=== PATIENT | male | born 1985 | race Caucasian/White ===

== ENCOUNTER 2021-03-02 17:13 | Emergency (ER) | payer MEDICAID, OTHER ==
[~2021-03-02] VITALS: Ht 185.4 cm; Wt 95.3 kg
[2021-03-02 18:27] LABS: Salicylate < 1.7 mg/dL (2.8-20.0)
[2021-03-02 18:48] LABS: Acetaminophen < 2.0 ug/mL (10-30)
[2021-03-02 21:37] LABS: Barbiturate Scree,Urine NEGATIVE (NEGATIVE); Benzodiazephine Screen, Urine NEGATIVE (NEGATIVE); Cocaine Screen, Urine NEGATIVE (NEGATIVE)
[2021-03-02 21:46] LABS: Amphetamine Screen, Urine POSITIVE (NEGATIVE); Cannabinoid Screen, Urine POSITIVE (NEGATIVE); Opiate Scree,Urine NEGATIVE (NEGATIVE); Phencyclidine Screen, Urine NEGATIVE (NEGATIVE)
[2021-03-02] MEDS ORDERED: DOCUSATE SOD 100 MG CAP PO ONE (23:15)
[2021-03-02] MEDS ORDERED: ACETAMINOPHEN 325 MG TAB PO ONE (23:15)
[2021-03-03 02:35] VITALS: BP 134/79
== END 2021-03-03 02:37 | disposition home or self-care (01) ==
LOC: ER 17:13
DX: R45.851 Suicidal ideations (principal); R07.89 Other chest pain; F31.9 Bipolar disorder, unspecified; F20.9 Schizophrenia, unspecified; F41.9 Anxiety disorder, unspecified; F17.210 Nicotine dependence, cigarettes, uncomplicated
CPT/HCPCS: 36415; 80307; 80320; 80329

== ENCOUNTER 2021-04-13 03:34 | Emergency (ER) | payer MEDICAID ==
[~2021-04-13] VITALS: Ht 185.4 cm; Wt 93.9 kg
[2021-04-13 07:15] LABS: Basophils # (auto) 0.1 10 ^3/uL (0-0.2); Basophils % (auto) 0.8 % (0.0-2.0); Eosinophils # (auto) 0.4 10 ^3/uL (0-0.8); Eosinophils % (auto) 4.4 % (0.0-7.0); Hematocrit 43.2 % (41.0-53.0); Hemoglobin 14.7 g/dL (13.5-17.5); Lymphocytes # (auto) 1.6 10 ^3/uL (0.4-5.4); Lymphocytes % (auto) 16.3 % (10.0-50.0); Mean Corpuscular Hemoglobin 33.2 pg (28.0-32.0); Mean Corpuscular Volume 97.7 fL (80.0-100.0); Monocytes # (auto) 0.5 10 ^3/uL (0-1.3); Monocytes % (auto) 5.1 % (0.0-12.0); Neutrophils # (auto) 7.2 10 ^3/uL (1.6-8.6); Neutrophils % (auto) 73.4 % (37.0-80.0); Nucleated Red Blood Cells % 0.1 %; Red Blood Cells 4.42 10^6/uL (4.5-5.90); Red Cell Distribution Width 13.6 % (11.8-14.3); White Blood Cell 9.9 10^3/uL (4.4-10.8)
[2021-04-13 07:30] LABS: Albumin 3.6 g/dL (3.4-5.0); Anion Gap 5 (5-15); Blood Alcohol < 3.0 mg/dL (0-5); Blood Urea Nitrogen 14 mg/dL (7-18); Calcium 8.5 mg/dL (8.5-10.1); Carbon Dioxide 27 mmol/L (21-32); Chloride 109 mmol/L (98-107); Glucose 88 mg/dL (74-106); Potassium 3.9 mmol/L (3.5-5.1); Sodium 141 mmol/L (136-145)
[2021-04-13 07:33] LABS: Alanine Aminotransferase 24 U/L (16-61); Alkaline Phosphatase 69 U/L (45-117); Aspartate Aminotransferase 18 U/L (15-37); BUN/Creatinine Ratio 16.1; Bilirubin, Total 0.3 mg/dL (0.2-1.0); GFR African American 128 mL/min; GFR Non-African American 106 mL/min; Total Protein 7.1 g/dL (6.4-8.2)
[2021-04-13 11:42] VITALS: BP 101/69
[2021-04-13 12:00] LABS: Urine Bacteria NONE SEEN /hpf (None Seen); Urine Blood Negative /uL (Negative); Urine Mucus FEW (None Seen); Urine WBC 1 /hpf (0 - 3)
[2021-04-13 12:06] LABS: Alcohol, Urine < 3.0 mg/dL (0-10); Amphetamine Screen, Urine NEGATIVE (NEGATIVE); Barbiturate Scree,Urine NEGATIVE (NEGATIVE); Benzodiazephine Screen, Urine NEGATIVE (NEGATIVE); Cannabinoid Screen, Urine POSITIVE (NEGATIVE); Cocaine Screen, Urine NEGATIVE (NEGATIVE); Opiate Scree,Urine NEGATIVE (NEGATIVE); Phencyclidine Screen, Urine NEGATIVE (NEGATIVE)
== END 2021-04-13 12:27 | disposition home or self-care (01) ==
LOC: ER 03:37
DX: R45.851 Suicidal ideations (principal); F17.210 Nicotine dependence, cigarettes, uncomplicated; F32.9 Major depressive disorder, single episode, unspecified; F41.9 Anxiety disorder, unspecified; F12.10 Cannabis abuse, uncomplicated; F14.10 Cocaine abuse, uncomplicated; Z20.822 Contact with and (suspected) exposure to COVID-19
CPT/HCPCS: 36415; 80053; 80307; 80320; 81001; 85025; 85049; 87426

== ENCOUNTER 2021-05-11 01:04 | Emergency (ER) | payer MEDICAID ==
[~2021-05-11] VITALS: Ht 185.4 cm; Wt 95.7 kg
[2021-05-11 02:18] LABS: Basophils # (auto) 0.1 10 ^3/uL (0-0.2); Eosinophils # (auto) 0.4 10 ^3/uL (0-0.8); Lymphocytes # (auto) 1.9 10 ^3/uL (0.4-5.4); Lymphocytes % (auto) 27.4 % (10.0-50.0); Monocytes % (auto) 7.8 % (0.0-12.0)
[2021-05-11 02:20] LABS: Basophils % (auto) 1.1 % (0.0-2.0); Hematocrit 43.5 % (41.0-53.0); Hemoglobin 15.3 g/dL (13.5-17.5); Mean Corpuscular Hemoglobin 34.2 pg (28.0-32.0); Mean Corpuscular Hgb Conc. 35.3 g/dL (32.0-36.0); Mean Corpuscular Volume 96.9 fL (80.0-100.0); Monocytes # (auto) 0.6 10 ^3/uL (0-1.3); Neutrophils # (auto) 4.1 10 ^3/uL (1.6-8.6); Neutrophils % (auto) 57.7 % (37.0-80.0); Red Blood Cells 4.48 10^6/uL (4.5-5.90); Red Cell Distribution Width 13.4 % (11.8-14.3); White Blood Cell 7.1 10^3/uL (4.4-10.8)
[2021-05-11 02:35] LABS: Calcium 8.5 mg/dL (8.5-10.1); Potassium 3.9 mmol/L (3.5-5.1); Salicylate 2.3 mg/dL (2.8-20.0)
[2021-05-11 02:38] LABS: BUN/Creatinine Ratio 9.8
[2021-05-11 02:40] LABS: Bilirubin, Total 0.3 mg/dL (0.2-1.0); Total Protein 7.4 g/dL (6.4-8.2)
[2021-05-11 02:48] LABS: Acetaminophen < 2.0 ug/mL (10-30)
[2021-05-11 07:12] LABS: Urine WBC None Seen /hpf (0 - 3)
[2021-05-11 07:31] LABS: Urine Bacteria FEW /hpf (None Seen); Urine Blood Negative /uL (Negative); Urine Specific Gravity 1.003 (1.001-1.035)
[2021-05-11 07:42] LABS: Alcohol, Urine < 3.0 mg/dL (0-10); Amphetamine Screen, Urine NEGATIVE (NEGATIVE); Barbiturate Scree,Urine NEGATIVE (NEGATIVE); Benzodiazephine Screen, Urine NEGATIVE (NEGATIVE); Cannabinoid Screen, Urine POSITIVE (NEGATIVE); Cocaine Screen, Urine NEGATIVE (NEGATIVE); Opiate Scree,Urine NEGATIVE (NEGATIVE); Phencyclidine Screen, Urine NEGATIVE (NEGATIVE)
[2021-05-12 17:57] VITALS: BP 92/56
== END 2021-05-12 18:19 ==
LOC: ER 01:07
DX: R45.851 Suicidal ideations (principal); F32.9 Major depressive disorder, single episode, unspecified; F20.9 Schizophrenia, unspecified; F17.210 Nicotine dependence, cigarettes, uncomplicated; F12.10 Cannabis abuse, uncomplicated; F41.9 Anxiety disorder, unspecified; Z20.822 Contact with and (suspected) exposure to COVID-19
CPT/HCPCS: 36415; 80053; 80307; 80320; 80329; 81001; 85025; 87426

== ENCOUNTER 2021-06-05 21:42 | Emergency (ER) | payer MEDICAID ==
[~2021-06-05] VITALS: Ht 185.4 cm; Wt 95.7 kg
[2021-06-06 00:25] LABS: Hematocrit 41.9 % (41.0-53.0); Hemoglobin 14.5 g/dL (13.5-17.5); Mean Corpuscular Hemoglobin 33.8 pg (28.0-32.0); Mean Corpuscular Hgb Conc. 34.6 g/dL (32.0-36.0); Mean Corpuscular Volume 97.4 fL (80.0-100.0); Red Cell Distribution Width 13.3 % (11.8-14.3); White Blood Cell 8.1 10^3/uL (4.4-10.8)
[2021-06-06 00:31] LABS: Basophils % (manual) 0 (0.0-2.0); Blast Cells 0; Metamyelocytes % 0; Myelocytes % 0; Promyelocytes % 0
[2021-06-06 00:38] LABS: Anion Gap 7 (5-15); BUN/Creatinine Ratio 6.8; Blood Alcohol < 3.0 mg/dL (0-5); Blood Urea Nitrogen 6 mg/dL (7-18); Calcium 8.3 mg/dL (8.5-10.1); Carbon Dioxide 26 mmol/L (21-32); Chloride 108 mmol/L (98-107); GFR African American 126 mL/min; GFR Non-African American 104 mL/min; Glucose 90 mg/dL (74-106); Potassium 3.8 mmol/L (3.5-5.1); Sodium 141 mmol/L (136-145)
[2021-06-06 00:39] LABS: Salicylate < 1.7 mg/dL (2.8-20.0)
[2021-06-06 00:47] LABS: Acetaminophen < 2.0 ug/mL (10-30)
[2021-06-06 01:08] LABS: Band Neutrophils % (manual) 4; Eosinophils % (manual) 5 (0-7); Lymphocytes % (manual) 32 (10.0-50.0); Monocytes % (manual) 7 (0-12); Reactive Lymphocytes 1
[2021-06-06 09:11] LABS: Alcohol, Urine < 3.0 mg/dL (0-10); Amphetamine Screen, Urine NEGATIVE (NEGATIVE); Barbiturate Scree,Urine NEGATIVE (NEGATIVE); Benzodiazephine Screen, Urine NEGATIVE (NEGATIVE); Cannabinoid Screen, Urine POSITIVE (NEGATIVE); Cocaine Screen, Urine NEGATIVE (NEGATIVE); Opiate Scree,Urine NEGATIVE (NEGATIVE); Phencyclidine Screen, Urine NEGATIVE (NEGATIVE)
[2021-06-06] MEDS ORDERED: hydrOXYzine 25 MG TAB or CAP PO PRN (11:15)
[2021-06-06] MEDS ORDERED: OLAN1TAB19 PO (14:47)
[2021-06-06] MEDS ORDERED: FLUO-259 PO (14:48)
[2021-06-06] MEDS ORDERED: HYDR50TA32 PO (14:51)
[2021-06-06] MEDS ORDERED: ALPR0.25 PO (14:58)
[2021-06-06] MEDS: OLANZapine 5 MG TAB PO SCH (23:57)
[2021-06-07] MEDS ORDERED: FLUoxetine HCL 20 MG CAP PO SCH (10:00)
[2021-06-07] MEDS: OLANZapine 5 MG TAB PO SCH (22:00)
[2021-06-08 12:37] VITALS: BP 126/83
== END 2021-06-08 13:13 | disposition home or self-care (01) ==
LOC: ER 21:42
DX: R45.851 Suicidal ideations (principal); F32.9 Major depressive disorder, single episode, unspecified; F41.9 Anxiety disorder, unspecified; F17.210 Nicotine dependence, cigarettes, uncomplicated
CPT/HCPCS: 36415; 80048; 80307; 80320; 80329; 85007; 85027; 99285; C9803; U0003

== ENCOUNTER 2023-03-24 16:03 | Emergency (ER) | payer MEDICAID ==
[~2023-03-24] VITALS: Ht 185.4 cm; Wt 93.8 kg
[~2023-03-24 16:03] MED LIST: ALPR0.25 PO; FLUO-259 PO; HYDR50TA32 PO; OLAN1TAB19 PO
[2023-03-24 16:10] VITALS: BP 139/82
[2023-03-24 16:41] LABS: Hematocrit 44.2 % (41.0-53.0); Hemoglobin 15.3 g/dL (13.5-17.5); Mean Corpuscular Hemoglobin 33.1 pg (28.0-32.0); Mean Corpuscular Hgb Conc. 34.6 g/dL (32.0-36.0); Mean Corpuscular Volume 95.9 fL (80.0-100.0); Red Blood Cells 4.61 10^6/uL (4.5-5.90); Red Cell Distribution Width 13.7 % (11.8-14.3); White Blood Cell 8.9 10^3/uL (4.4-10.8)
[2023-03-24 16:48] LABS: Urine Bacteria NONE SEEN /hpf (None Seen); Urine Blood Negative /uL (Negative); Urine Specific Gravity 1.011 (1.001-1.035); Urine WBC <1 /hpf (0 - 3)
[2023-03-24 16:50] LABS: Basophils % (manual) 0 (0.0-2.0); Blast Cells 0; Metamyelocytes % 0; Myelocytes % 0; Promyelocytes % 0; Reactive Lymphocytes 0
[2023-03-24 16:57] LABS: Albumin 3.8 g/dL (3.4-5.0); Calcium 8.4 mg/dL (8.5-10.1); Potassium 3.9 mmol/L (3.5-5.1)
[2023-03-24 17:00] LABS: BUN/Creatinine Ratio 13.9 (10.0-20.0); Bilirubin, Total 0.4 mg/dL (0.2-1.0); Total Protein 7.3 g/dL (6.4-8.2)
[2023-03-24 17:18] LABS: Band Neutrophils % (manual) 3; Eosinophils % (manual) 1 (0-7); Lymphocytes % (manual) 25 (10.0-50.0); Monocytes % (manual) 12 (0-12)
[2023-03-25] MEDS ORDERED: POLY335015 PO (08:50)
== END 2023-03-24 23:13 | disposition left against medical advice (07) ==
LOC: ER 16:03
DX: K92.1 Melena (principal); K64.9 Unspecified hemorrhoids; F17.210 Nicotine dependence, cigarettes, uncomplicated; F12.10 Cannabis abuse, uncomplicated; F41.9 Anxiety disorder, unspecified; F32.9 Major depressive disorder, single episode, unspecified; F20.9 Schizophrenia, unspecified
CPT/HCPCS: 36415; 74176; 80053; 81001; 83690; 85007; 85027

== ENCOUNTER 2023-03-25 07:50 | Emergency (ER) | payer MEDICAID ==
[~2023-03-25] VITALS: Ht 185.4 cm; Wt 94.0 kg
[2023-03-25 08:39] VITALS: BP 116/77
[2023-03-25] MEDS ORDERED: LACTULOSE 20Gm/30ML SOLN PO ONE (08:45)
[2023-03-25] MEDS ORDERED: POLY335015 PO (08:50)
[2023-03-25] MEDS ORDERED: POLYETHYLENE GLYCOL 17 GM PWDR PO ONE (09:15)
== END 2023-03-25 11:57 | disposition home or self-care (01) ==
LOC: ER 07:50
DX: K59.00 Constipation, unspecified (principal); F17.210 Nicotine dependence, cigarettes, uncomplicated; F12.10 Cannabis abuse, uncomplicated
CPT/HCPCS: 74018

== ENCOUNTER → 2023-04-16 | Emergency (ER) | payer MEDICAID ==
[~2023-04-16] VITALS: Ht 185.4 cm; Wt 92.3 kg
[~2023-04-16] MED LIST changes: +DICY10CA PO; +POLY335015 PO
[2023-04-16 15:16] VITALS: BP 124/81
== END | disposition home or self-care (01) ==
LOC: ER 12:15
DX: R10.9 Unspecified abdominal pain (principal); F17.210 Nicotine dependence, cigarettes, uncomplicated; F12.90 Cannabis use, unspecified, uncomplicated; F41.9 Anxiety disorder, unspecified; F32.9 Major depressive disorder, single episode, unspecified; F20.9 Schizophrenia, unspecified; Z79.899 Other long term (current) drug therapy

== ENCOUNTER 2023-05-04 16:31 | Emergency (ER) | payer MEDICAID ==
[~2023-05-04] VITALS: Ht 388.6 cm; Wt 81.8 kg
[2023-05-04 17:18] VITALS: BP 136/68
[2023-05-04 17:44] LABS: Basophils # (auto) 0 10 ^3/uL (0-0.2); Basophils % (auto) 0.6 % (0.0-2.0); Eosinophils # (auto) 0.1 10 ^3/uL (0-0.8); Eosinophils % (auto) 1.1 % (0.0-7.0); Hematocrit 44.9 % (41.0-53.0); Lymphocytes # (auto) 1.7 10 ^3/uL (0.4-5.4); Lymphocytes % (auto) 25.7 % (10.0-50.0); Mean Corpuscular Hgb Conc. 33.4 g/dL (32.0-36.0); Mean Corpuscular Volume 95.8 fL (80.0-100.0); Monocytes # (auto) 0.6 10 ^3/uL (0-1.3); Monocytes % (auto) 8.2 % (0.0-12.0); Neutrophils # (auto) 4.3 10 ^3/uL (1.6-8.6); Neutrophils % (auto) 64.4 % (37.0-80.0); Red Blood Cells 4.68 10^6/uL (4.5-5.90); Red Cell Distribution Width 13.7 % (11.8-14.3); White Blood Cell 6.7 10^3/uL (4.4-10.8)
[2023-05-04 18:03] LABS: Albumin 3.6 g/dL (3.4-5.0); Calcium 8.5 mg/dL (8.5-10.1); Potassium 3.3 mmol/L (3.5-5.1)
[2023-05-04 18:07] LABS: BUN/Creatinine Ratio 5.3 (10.0-20.0); Bilirubin, Total 0.6 mg/dL (0.2-1.0); Magnesium 2.6 mg/dL (1.6-2.6)
[2023-05-04] MEDS ORDERED: SENN-62 PO (21:50)
[2023-05-04] MEDS ORDERED: CIPR-173 PO (21:50)
[2023-05-04] MEDS ORDERED: MAGN400T40 PO (21:50)
[2023-05-04] MEDS ORDERED: POTASSIUM EFFERVESENT TAB 25 MEQ PO ONE (22:00)
== END 2023-05-04 22:04 | disposition left against medical advice (07) ==
LOC: ER 16:31 → EDBD 16:31 → ER 22:04
DX: R10.12 Left upper quadrant pain (principal); K57.30 Diverticulosis of large intestine without perforation or abscess without bleeding; K44.9 Diaphragmatic hernia without obstruction or gangrene; K59.00 Constipation, unspecified; F20.9 Schizophrenia, unspecified; F17.210 Nicotine dependence, cigarettes, uncomplicated; Z79.899 Other long term (current) drug therapy
CPT/HCPCS: 36415; 71046; 74176; 80053; 83690; 83735; 85025

== ENCOUNTER 2024-11-20 00:36 | Emergency (ER) | payer MEDICAID ==
[~2024-11-20] VITALS: Ht 177.8 cm; Wt 82.1 kg
[~2024-11-20 00:36] MED LIST changes: +CIPR-173 PO; +MAGN400T40 PO; +SENN-62 PO
--- NOTE | 2024-11-20 01:04 | ED.PDOC ---
Psychiatric HPI Comments 39-year-old male who came to ER for suicide ideations. Patient does have history of anxiety, depression, schizophrenia and suicide attempts. States she has been feeling suicidal recently, has plans of cutting his wrists. Denies being homicidal. Denies any auditory or visual hallucinations. Chief Complaint: Suicidal Time Seen by MD: 01:03 Primary Care Provider: Chris Monroe Notes: Nurses Notes Information Source: Patient Mode of Arrival: Ambulatory Severity: Unable to Care for Self, Unable to Control Self Severity of Pain: Moderate Severity of Mental Status: Moderate Severity of Symptoms: Moderate Timing: Hours Duration: Intermittent Presents with: Depression, Anxiety, Unclear Thinking, Suicidal Ideation Attempt: Laceration Circumstance: Medical Clearance Current substance abuse: None Stressors: Relationships History of: Depression, Anxiety, Schizophrenia, Suicidal Attempt Associated signs and symptoms: Depression, Anxiety, Confusion Past Medical History PAST MEDICAL HISTORY: Anxiety, Depression, Schizophrenia Past Medical History (Other): Suicidal ideation Surgical History: Denies all surgeries Family History Family History: Reviewed,noncontributory to illness Social History Smoker: Cigarettes, Less Than 1 Pack/Day Alcohol: Occasionally Drugs: Marijuana Lives In: Home Constitutional: denies: chills, diaphoresis, fatigue, fever, malaise, sweats, weakness, others EENTM: denies: blurred vision, double vision, ear bleeding, ear discharge, ear drainage, ear pain, ear ringing, eye pain, eye redness, hearing loss, mouth pain, mouth swelling, nasal discharge, nose bleeding, nose congestion, nose pain, photophobia, tearing, throat pain, throat swelling, voice changes, others Respiratory: denies: cough, hemoptysis, orthopnea, SOB at rest, shortness of breath, SOB with excertion, stridor, wheezing, others Cardiovascular: denies: chest pain, dizzy spells, diaphoresis, Dyspnea on exertion, edema, irregular heart beat, left arm pain, lightheadedness, palpitations, PND, syncope, others Gastrointestinal: denies: abdomen distended, abdominal pain, blood streaked bowels, constipated, diarrhea, dysphagia, difficulty swallowing, hematemesis, melena, nausea, poor appetite, poor fluid intake, rectal bleeding, rectal pain, vomiting, others Genitourinary: denies: burning, dysuria, flank pain, frequency, hematuria, incontinence, penile discharge, penile sore, pain, testicle pain, testicle swelling, urgency, others Neurological: denies: dizziness, fainting, headache, left sided numbness, left sided weakness, numbness, paresthesia, pre-existing deficit, right sided numbness, right sided weakness, seizure, speech problems, tingling, tremors, weakness, others Musculoskeletal: denies: back pain, gout, joint pain, joint swelling, muscle pain, muscle stiffness, neck pain, others Integumetry: denies: bruises, change in color, change in hair/nails, dryness, laceration, lesions, lumps, rash, wounds, others Allergic/Immunocompromised: denies: Difficulty Healing, Frequent Infections, Hives, Itching, others Hematologic/Lymphatic: denies: anemia, blood clots, easy bleeding, easy bruising, swollen glands, others Endocrine: denies: excessive hunger, excessive sweating, excessive thirst, excessive urination, flushing, intolerance to cold, intolerance to heat, unexplained weight gain, unexplained weight loss, others Psychiatric: reports: schizophrenia, suicidal; denies: anxiety, bipolar disorder, depression, hopeless, panic disorder, sleepless, others Physical Exam General Appearance: No Apparent Distress, Normal HEENT: Normal ENT Inspection, Pharynx Normal, TMs Normal Neck: Full Range of Motion, Non-Tender, Normal, Normal Inspection Respiratory: Chest Non-Tender, Lungs Clear, No Accessory Muscle Use, No Respiratory Distress, Normal Breath Sounds Cardiovascular: No Edema, No JVD, No Murmur, No Gallop, Normal Peripheral Pulses, Regular Rate/Rhythm Breast Exam: Deferred Gastrointestinal: No Organomegaly, Non Tender, No Pulsatile Mass, Normal Bowel Sounds, Soft Genitalia: Deferred Pelvic: Deferred Rectal: Deferred Extremities: No calf tenderness, Normal capillary refill, Normal inspection, Normal range of motion, Non-tender, No pedal edema Musculoskeletal : Apperance: Normal Neurologic: Alert, 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 Was a procedure done?: No Psych Differential Dx Suicidal Differential Dx: Anxiety, Depression, Personality Disorder, Schizoprenia X-Ray, Labs, Meds, VS Vital Signs Date Time Temp Pulse Resp B/P (MAP) Pulse Ox O2 Delivery O2 Flow Rate FiO2 11/20/24 00:49 97.9 101 16 137/87 (104) 99 Lab Test 11/20/24 01:29 11/20/24 01:08 Range/Units White Blood Count 13.2 H 4.4-10.8 10^3/uL Red Blood Count 4.54 4.5-5.90 10^6/uL Hemoglobin 14.6 13.5-17.5 g/dL Hematocrit 44.1 41.0-53.0 % Mean Corpuscular Volume 97.0 80.0-100.0 fL Mean Corpuscular Hemoglobin 32.1 H 28.0-32.0 pg Mean Corpuscular Hemoglobin Concent 33.0 32.0-36.0 g/dL Red Cell Distribution Width 12.9 11.8-14.3 % Platelet Count 185 140-450 10^3/uL Mean Platelet Volume 10.8 6.9-10.8 fL Neutrophils (%) (Auto) 83.8 H 37.0-80.0 % Lymphocytes (%) (Auto) 8.2 L 10.0-50.0 % Monocytes (%) (Auto) 6.6 0.0-12.0 % Eosinophils (%) (Auto) 0.8 0.0-7.0 % Basophils (%) (Auto) 0.6 0.0-2.0 % Neutrophils # (Auto) 11.1 H 1.6-8.6 10 ^3/uL Lymphocytes # (Auto) 1.1 0.4-5.4 10 ^3/uL Monocytes # (Auto) 0.9 0-1.3 10 ^3/uL Eosinophils # (Auto) 0.1 0-0.8 10 ^3/uL Basophils # (Auto) 0.1 0-0.2 10 ^3/uL Nucleated Red Blood Cells 0.0 % Sodium Level 142 136-145 mmol/L Potassium Level 3.2 L 3.5-5.1 mmol/L Chloride Level 105 98-107 mmol/L Carbon Dioxide Level 29 20-31 mmol/L Anion Gap 8 5-15 Blood Urea Nitrogen 8 L 9-23 mg/dL Creatinine 0.97 0.700-1.30 mg/dL Glomerular Filtration Rate Calc 101 >90 mL/min BUN/Creatinine Ratio 8.2 L 10.0-20.0 Serum Glucose 92 74-106 mg/dL Calcium Level 9.7 8.7-10.4 mg/dL Salicylates Level < 3.0 -30 mg/dL Acetaminophen Level < 2.0 L 10.0-20.0 UG/ML Plasma/Serum Blood Alcohol < 3.0 <10 mg/dL Urine Color Yellow Yellow Urine Clarity Clear Clear Urine pH 5.5 5.0-9.0 Urine Specific [place] 1.034 1.001-1.035 Urine Protein 1+ H Negative Urine Ketones Trace Negative Urine Blood Negative Negative /uL Urine Nitrite Negative Negative Urine Bilirubin Negative Negative Urine Urobilinogen 2 H Negative mg/dL Urine Leukocyte Esterase Negative Negative /uL Urine RBC 1 0 - 3 /hpf Urine Microscopic WBC 1 0-3 /HPF Urine Squamous Epithelial Cells None seen <5 /hpf Urine Amorphous Crystals Few None Seen /hpf Urine Bacteria None seen None Seen /hpf Urine Mucus Few None Seen Urine Glucose Normal Normal mg/dL Urine Opiates Screen Neg NEGATIVE Urine Fentanyl Screen Neg NEGATIVE Urine Barbiturates Screen Neg NEGATIVE Urine Phencyclidine Screen Neg NEGATIVE Urine Amphetamines Screen Neg NEGATIVE Urine Benzodiazepines Screen Neg NEGATIVE Urine Cocaine Screen Neg NEGATIVE Urine Cannabinoids Screen Neg NEGATIVE Time of 1ST Reevaluation: 01:00 Reevaluation 1ST: Unchanged Patient Education/Counseling: Diagnosis, Treatment Family Education/Counseling: No Family Present Departure 1 Departure Time of Disposition: 05:58 (Patient presenting with suicide ideation and psychosis. Patient is medically cleared we will sign out patient to the morning doctor pending psychiatric evaluation.) Impression: Primary Impression: Psychosis Qualified Codes: F29 - Unspecified psychosis not due to a substance or known physiological condition Additional Impression: Suicide ideation Disposition: 30 STILL A PATIENT Condition: Serious Critical Care Note Critical Care Time?: Yes Critical care comment: Suicide ideation Authorized and Performed by: Shoaib Lam MD Total critical care time: Approximately 42 minutes Due to a high probability of clinically significant, life threatening deterioration, the patient required my highest level of preparedness to intervene emergently and I personally spent this critical care time directly and personally managing the patient. This critical care time included obtaining a history; examining the patient; pulse oximetry; ordering and review of studies; arranging urgent treatment with development of a management plan; evaluation of patient's response to treatment; frequent reassessment; and, discussions with other providers. This critical care time was performed to assess and manage the high probability of imminent, life-threatening deterioration that could result in multi-organ failure. It was exclusive of separately billable procedures and treating other patients and teaching time. Please see my other sections and the rest of the note for further information on patient assessment and treatment. Stability Stability form required: No Heart Score Heart Score: Heart Score Response (Comments) Value History N/A 0 EKG N/A 0 Age N/A 0 Risk Factors N/A 0 Troponin N/A 0 Total 0 I personally scribed for SHOAIB LAM MD ([email or web address]) on 11/20/24 at 01:04. Electronically submitted by Jabari Enriquez ([email or web address]). SHOAIB LAM MD Nov 20, 2024 01:04
[2024-11-20 01:32] LABS: Urine Bacteria None Seen /hpf (None Seen)
[2024-11-20 01:41] LABS: Basophils # (auto) 0.1 10 ^3/uL (0-0.2); Basophils % (auto) 0.6 % (0.0-2.0); Eosinophils # (auto) 0.1 10 ^3/uL (0-0.8); Eosinophils % (auto) 0.8 % (0.0-7.0); Hematocrit 44.1 % (41.0-53.0); Hemoglobin 14.6 g/dL (13.5-17.5); Lymphocytes # (auto) 1.1 10 ^3/uL (0.4-5.4); Lymphocytes % (auto) 8.2 % (10.0-50.0); Mean Corpuscular Hemoglobin 32.1 pg (28.0-32.0); Monocytes # (auto) 0.9 10 ^3/uL (0-1.3); Monocytes % (auto) 6.6 % (0.0-12.0); Neutrophils # (auto) 11.1 10 ^3/uL (1.6-8.6); Neutrophils % (auto) 83.8 % (37.0-80.0); Platelet Count (auto) 185 10^3/uL (140-450); Red Blood Cells 4.54 10^6/uL (4.5-5.90); Red Cell Distribution Width 12.9 % (11.8-14.3); White Blood Cell 13.2 10^3/uL (4.4-10.8)
[2024-11-20 01:54] LABS: Chloride 105 mmol/L (98-107); Sodium 142 mmol/L (136-145)
[2024-11-20 01:54] LABS: Urine Amorphous Crystal FEW /hpf (None Seen); Urine Blood Negative /uL (Negative); Urine Clarity Clear (Clear); Urine Color Yellow (Yellow); Urine Mucus FEW (None Seen); Urine Protein, UAD 1+ (Negative); Urine Specific Gravity 1.034 (1.001-1.035); Urine Squamous Epithelial Cell None Seen /hpf (<5); Urine Urobilinogen 2 mg/dL (Negative); Urine WBC 1 /HPF (0-3); Urine pH 5.5 (5.0-9.0)
[2024-11-20 01:55] LABS: Anion Gap 8 (5-15); Carbon Dioxide 29 mmol/L (20-31)
[2024-11-20 01:56] LABS: Calcium 9.7 mg/dL (8.7-10.4)
[2024-11-20 02:00] LABS: Amphetamine Screen, Urine Neg (NEGATIVE)
[2024-11-20 02:01] LABS: BUN/Creatinine Ratio 8.2 (10.0-20.0); Blood Urea Nitrogen 8 mg/dL (9-23); Glucose 92 mg/dL (74-106); Potassium 3.2 mmol/L (3.5-5.1)
[2024-11-20 02:02] LABS: Barbiturate Scree,Urine Neg (NEGATIVE); Benzodiazephine Screen, Urine Neg (NEGATIVE); Cannabinoid Screen, Urine Neg (NEGATIVE); Cocaine Screen, Urine Neg (NEGATIVE); Opiate Scree,Urine Neg (NEGATIVE); Phencyclidine Screen, Urine Neg (NEGATIVE)
[2024-11-20 02:02] LABS: Blood Alcohol < 3.0 mg/dL (<10)
[2024-11-20 02:05] LABS: Acetaminophen < 2.0 UG/ML (10.0-20.0); Salicylate < 3.0 mg/dL (-30)
[2024-11-20 06:40] VITALS: PULSE 78; RESP 16; O2SAT 97
[2024-11-20 08:00] VITALS: PULSE 78; RESP 16; O2SAT 97
[2024-11-20 19:30] VITALS: PULSE 81; RESP 16; O2SAT 100
--- NOTE | 2024-11-20 19:32 | DVHINCON2 ---
Date of Service if different f: Nov 20, 2024 Time of Service: 19:06 Consultation ([facility]) Consulting Physician: PATTI ESTRADA MD Labs Laboratory Tests Test 11/20/24 01:08 11/20/24 01:29 Urine Color Yellow (Yellow) Urine Clarity Clear (Clear) Urine pH 5.5 (5.0-9.0) Urine Specific [place] 1.034 (1.001-1.035) Urine Protein 1+ (Negative) Urine Ketones Trace (Negative) Urine Blood Negative /uL (Negative) Urine Nitrite Negative (Negative) Urine Bilirubin Negative (Negative) Urine Urobilinogen 2 mg/dL (Negative) Urine Leukocyte Esterase Negative /uL (Negative) Urine RBC 1 /hpf (0 - 3) Urine Microscopic WBC 1 /HPF (0-3) Urine Squamous Epithelial Cells None seen /hpf (<5) Urine Amorphous Crystals Few /hpf (None Seen) Urine Bacteria None seen /hpf (None Seen) Urine Mucus Few (None Seen) Urine Glucose Normal mg/dL (Normal) Urine Opiates Screen Neg (NEGATIVE) Urine Fentanyl Screen Neg (NEGATIVE) Urine Barbiturates Screen Neg (NEGATIVE) Urine Phencyclidine Screen Neg (NEGATIVE) Urine Amphetamines Screen Neg (NEGATIVE) Urine Benzodiazepines Screen Neg (NEGATIVE) Urine Cocaine Screen Neg (NEGATIVE) Urine Cannabinoids Screen Neg (NEGATIVE) White Blood Count 13.2 10^3/uL (4.4-10.8) Red Blood Count 4.54 10^6/uL (4.5-5.90) Hemoglobin 14.6 g/dL (13.5-17.5) Hematocrit 44.1 % (41.0-53.0) Mean Corpuscular Volume 97.0 fL (80.0-100.0) Mean Corpuscular Hemoglobin 32.1 pg (28.0-32.0) Mean Corpuscular Hemoglobin Concent 33.0 g/dL (32.0-36.0) Red Cell Distribution Width 12.9 % (11.8-14.3) Platelet Count 185 10^3/uL (140-450) Mean Platelet Volume 10.8 fL (6.9-10.8) Neutrophils (%) (Auto) 83.8 % (37.0-80.0) Lymphocytes (%) (Auto) 8.2 % (10.0-50.0) Monocytes (%) (Auto) 6.6 % (0.0-12.0) Eosinophils (%) (Auto) 0.8 % (0.0-7.0) Basophils (%) (Auto) 0.6 % (0.0-2.0) Neutrophils # (Auto) 11.1 10 ^3/uL (1.6-8.6) Lymphocytes # (Auto) 1.1 10 ^3/uL (0.4-5.4) Monocytes # (Auto) 0.9 10 ^3/uL (0-1.3) Eosinophils # (Auto) 0.1 10 ^3/uL (0-0.8) Basophils # (Auto) 0.1 10 ^3/uL (0-0.2) Nucleated Red Blood Cells 0.0 % Sodium Level 142 mmol/L (136-145) Potassium Level 3.2 mmol/L (3.5-5.1) Chloride Level 105 mmol/L (98-107) Carbon Dioxide Level 29 mmol/L (20-31) Anion Gap 8 (5-15) Blood Urea Nitrogen 8 mg/dL (9-23) Creatinine 0.97 mg/dL (0.700-1.30) Glomerular Filtration Rate Calc 101 mL/min (>90) BUN/Creatinine Ratio 8.2 (10.0-20.0) Serum Glucose 92 mg/dL (74-106) Calcium Level 9.7 mg/dL (8.7-10.4) Salicylates Level < 3.0 mg/dL (-30) Acetaminophen Level < 2.0 UG/ML (10.0-20.0) Plasma/Serum Blood Alcohol < 3.0 mg/dL (<10) Appearance: Stated age Psychomotor activity: WNL Behavioral: Cooperative Eye contact: Appropriate Speech: WNL Affect: Mood Congruent Mood: Depressed, Dysphoric Thought processes: Linear/Goal-directed Thought content: Hallucinations Suicidal ideations: Present Homicidal ideations: Absent Orientation: Person, Place, Time, Situation Memory intact: Recent Intellect: Average Abstractability: WNL Concentration: Adequate Attention: Adequate Judgement: WNL Insight: Fair Vitals Vital Signs Date Time Temp Pulse Resp B/P (MAP) Pulse Ox O2 Delivery O2 Flow Rate FiO2 11/20/24 08:00 78 16 97 Room Air* 0 21 11/20/24 08:00 98.6 126/85 (99) 98.6 Treatment plan discussed: With staff Medication adjusted: Yes Labs ordered: No Psychotherapy provided: No Type: Voluntary History of Present Illness Reason for Consult : psychiatric evaluation PER ED PHYSICIAN:39-year-old male who came to ER for suicide ideations. Patient does have history of anxiety, depression, schizophrenia and suicide attempts. States she has been feeling suicidal recently, has plans of cutting his wrists. Denies being homicidal. Denies any auditory or visual hallucinations. PER ED RN: Pt presents to the ER due to SI. Pt states that girlfriend oveerdosed and and since he has been extremely depressed and having thoughts of hurting himself. Pt reports his plan is to "cut his wrists." Pt reports last attempt was x8 months ago. Pt states dialy alcohol use which has "made his depression worse." Pt is having visual and auditory hallucinations. Pt denies HI. Pt placed in front of ER nurses station in clear view, pt calm and cooperative. Pt denies any needs at this time. Pt updated on POC, verbalizes understanding. Pt pending tele psych interview at this time. PSYCHIATRIST HPI: The patient was seen and evaluated at [facility] ED via telepsychiatry platform. 39 yr old male reported he is having thoughts of killing himself, He is thinking of cutting his wrist. He noted he hears voices that tell him to kill and hurt himself. He noted his ex-girlfriend committed suicide two month ago. He was talking to some woman who talked him out of cutting his wrist and she brought him to the ED. He said the hallucinations have been going on for the past three days. He noted he drinks about 7 cans of beer daily but denied having serious alcohol withdrawal or seizures in the past. He reported he feels down and depressed, sad and guilty. He has low energy and motivation and difficulty sleeping. He noted he had been taking prozac and zyprexa up until about a month ago, but stopped them as he started drinking more alcohol the past month or two. He feels unsafe leaving the hospital and agrees to voluntary admission to the behavioral health unit. He denied having HI/VH. Past Psychiatric History : Seven past hospitalizations, last in 2023. Two suicide attempts by cutting wrist. Diagnosed with schizoaffective disorder, bipolar type for the past 7 years. Current medications: prozac 20 mg qam, xanax, zyprexa 10mg qhs Past Medical History : peptic ulcers Substance Use: Alcohol-drinks seven tall cans of beer daily. Rehab ten years ago. longest sobriety was three years. Smokes MJ a couple times a month. Denied other drug use. Social History : Lives in [place] with girlfriend who he has been with 15 months. Never . No children. Receives SSI. DIAGNOSIS: SCHIZOAFFECTIVE DISORDER, BIPOLAR TYPE Formulation: This 39 yr old male appears to suffer from schizoaffective disorder and is suicidal and high risk for self harm. He may benefit from admission to [facility] and starting his medications. He meets criteria for involuntary hospitalization on the basis of danger to self, but he agrees to voluntary hospitalization. Plan: 1. Transfer to behavioral health unit when medically cleared and bed available. 2. Legal-voluntary. If patient is refusing voluntary hospitalization or no vountary beds are available, Please evaluated for 5150 hold. 3. Medications: Start fluoxetine 20mg qam and Zyprexa 10mg qhs. 4. Case discussed with ED physician Dr Whitney. 5. Please recontact psychiatry for further follow up or reevaluation. Assessment/Diagnosis/Plan Reviewed: Labs, Medications, Previous Orders PATTI ESTRADA MD Nov 20, 2024 18:38
[2024-11-20] MEDS: LORazepam 0.5 MG TAB PO ONE (21:21)
[2024-11-20] MEDS: OLANZapine 5 MG TAB PO SCH (22:12)
[2024-11-21] MEDS: FLUoxetine HCL 20 MG CAP PO SCH (06:50)
[2024-11-21 08:56] VITALS: BP 114/69; PULSE 80; RESP 15; TEMP 99; O2SAT 97
== END 2024-11-21 09:56 | disposition short-term general hospital (02) ==
LOC: ER 00:36
DX: F29 Unspecified psychosis not due to a substance or known physiological condition (principal); R45.851 Suicidal ideations; F41.9 Anxiety disorder, unspecified; F32.9 Major depressive disorder, single episode, unspecified; F20.9 Schizophrenia, unspecified; F17.210 Nicotine dependence, cigarettes, uncomplicated; F15.90 Other stimulant use, unspecified, uncomplicated; Z79.899 Other long term (current) drug therapy
CPT/HCPCS: 36415; 80048; 80307; 80320; 80329; 81001; 85025; 99285; J7030; 99291

== ENCOUNTER 2024-11-26 20:25 | Emergency (ER) | payer MEDICAID ==
[~2024-11-26] VITALS: Ht 182.9 cm; Wt 84.9 kg
--- NOTE | 2024-11-26 20:48 | ED.PDOC ---
Psychiatric HPI Comments CHERELLE: HPI: KIMMIE HISTORIAN. HPI: 39y M who presents to the ED via EMS for chief complaint of suicidal ideations. Pt had the following course of events; - EMS states pt was found in [place] parking lot attempting to cut L wrist with his finger nails. Patient has been feeling sad for approximately one month since the of his girlfriend by overdosing. - pt states original plan was to cut wrist with blade after he was feeling depressed after losing his girlfriend to drug overdose - pt states he was seen at crisis center and prescribed medication but did not pick pack worker medication - pt now in the ED, has noted superficial laceration to the L wrist but no noted bleeding - pt states he has history of schizophrenia and was previously on the following medications: Zyprexa, Prozac and Xanax - pt states he has not taken prescribed medications for the past 2 months past medical history: schizophrenia, anxiety, depression past surgical history: denies medications: Zyprexa, Prozac and Xanax allergies: denies social history: endorses tobacco use, endorses ETOH use, endorses drug use(marijuana) REVIEW OF SYSTEMS: CONSTITUTIONAL: DENIES ACUTE: FEVER, DIAPHORESIS, CHILLS, GENERALIZED WEAKNESS. HEAD: DENIES ACUTE: HEADACHE, PHOTOPHOBIA EYES: DENIES ACUTE: DOUBLE VISION, VISION LOSS, EYE PAIN, EYE DISCHARGE. EARS: DENIES ACUTE: TINNITUS, HEARING LOSS, EAR DISCHARGE, EAR PAIN, THROAT: DENIES ACUTE: SORE THROAT, SWELLING, DIFFICULTY SWALLOWING , PAIN WITH SWALLOWING, CHANGE IN VOICE. NECK: DENIES ACUTE: NECK PAIN, NECK SWELLING, STIFF NECK. HEART: DENIES ACUTE : CHEST PAIN, PALPITATIONS, LUNGS: DENIES ACUTE: SOB, WHEEZING, COUGH, HEMOPTYSIS ABDOMEN: DENIES ACUTE: ABDOMINAL PAIN, NAUSEA, VOMITING, DIARRHEA, MELENA , HEMATEMESIS, HEMATOCHEZIA SKIN: DENIES ACUTE: RASH, REDNESS, LESIONS, ITCHINESS. EXTREMITIES: DENIES ACUTE: CALF PAIN, NUMBNESS, TINGLING, WEAKNESS, DENIES PAIN IN EXTREMITY. DENIES ACUTE: LOW BACK PAIN. NEURO: DENIES ACUTE: FOCAL NEUROLOGICAL DEFICIT, MOTOR OR SENSORY FOCAL NEUROLOGICAL DEFICIT, TREMORS, SEIZURE LIKE ACTIVITY, CONFUSION, DIZZINESS, CHANGE IN MENTAL STATUS, LOSS OF BOWEL OR BLADDER FUNCTION, CAUDA EQUINA LIKE SYMPTOMS. : DENIES ACUTE: DYSURIA, HEMATURIA, FLANK PAIN, INCREASE IN URINARY FREQUENCY. PSYCH: DENIES ACUTE: HALLUCINATION, HOMICIDAL IDEATION. PHYSICAL EXAM: GENERAL: NO ACUTE DISTRESS, AWAKE AND ALERT. HEAD: NORMOCEPHALIC, ATRAUMATIC. NECK: SUPPLE, TRACHEA IS MIDLINE, NO SWELLING. THROAT: NORMAL PHONATION. EYES:, NO ERYTHEMA, NO PURULENT DISCHARGE, NO PROPTOSIS, NO ICTERUS. HEART: REGULAR RATE, REGULAR RHYTHM, NO SIGNIFICANT MURMUR APPRECIATED. LUNGS: NO APPARENT RESPIRATORY DISTRESS, ABLE TO SPEAK IN FULL SENTENCES. NO WHEEZING, NO RHONCHI, NO CRACKLES. NO STRIDORS CLEAR TO AUSCULTATION BILATERALLY. ABDOMEN: NON TENDER TO PALPATION, NON DISTENDED, SOFT, NO GUARDING, NO REBOUND, + BOWEL SOUNDS. NEURO: AWAKE, ALERT, ORIENTED TO NAME, SELF, SITUATION, FOLLOWS COMMANDS GCS=15. SPEECH IS NORMAL. SKIN: NO PETECHIA, NO PURPURA, NO CYANOSIS, NON-PALE, NOT JAUNDICE. LOWER EXTREMITIES: --NO - PITTING EDEMA NO DEFORMITY, NO FOCAL SWELLING, NO CALF TTP. MAKES EYE CONTACT. MOVES ALL FOUR EXTREMITIES. EVALUATION OF THE LEFT WRIST THERE IS MINIMAL SUPERFICIAL ABRASION CAUSED BY HIS RIGHT FINGER NAILS FACE: NO APPARENT FACIAL DROOP. ED COURSE: Chief Complaint: Suicidal Time Seen by MD: 20:28 Primary Care Provider: Chris Monroe Notes: Mat Tester Notes Information Source: Patient Mode of Arrival: EMS Past Medical History PAST MEDICAL HISTORY: Anxiety, Depression, Schizophrenia Surgical History: Denies all surgeries Family History Family History: Reviewed,noncontributory to illness Social History Smoker: Cigarettes, Less Than 1 Pack/Day Alcohol: Occasionally Drugs: Marijuana Lives In: Home Was a procedure done? Was a procedure done?: No Psych Differential Dx Suicidal Differential Dx: Alcohol Abuse, Anxiety, Bipolar Disorder, Conversion Disorder, Depression, Homicidal, Laceration, Panic Disorder, Personality Disorder, Schizoprenia, Substance Abuse X-Ray, Labs, Meds, VS Vital Signs Date Time Temp Pulse Resp B/P (MAP) Pulse Ox O2 Delivery O2 Flow Rate FiO2 11/27/24 03:30 97.4 84 14 108/64 (79) 98 97.4 2/6/25 20:32 97.8 84 16 138/88 (105) 97 Lab Test 11/26/24 21:08 11/26/24 20:35 Range/Units White Blood Count 8.7 # 4.4-10.8 10^3/uL Red Blood Count 4.15 L 4.5-5.90 10^6/uL Hemoglobin 13.5 13.5-17.5 g/dL Hematocrit 39.7 L 41.0-53.0 % Mean Corpuscular Volume 95.8 80.0-100.0 fL Mean Corpuscular Hemoglobin 32.6 H 28.0-32.0 pg Mean Corpuscular Hemoglobin Concent 34.0 32.0-36.0 g/dL Red Cell Distribution Width 12.5 11.8-14.3 % Platelet Count 216 140-450 10^3/uL Mean Platelet Volume 10.5 6.9-10.8 fL Neutrophils (%) (Auto) 73.3 37.0-80.0 % Lymphocytes (%) (Auto) 15.1 10.0-50.0 % Monocytes (%) (Auto) 9.1 0.0-12.0 % Eosinophils (%) (Auto) 1.6 0.0-7.0 % Basophils (%) (Auto) 0.9 0.0-2.0 % Neutrophils # (Auto) 6.4 1.6-8.6 10 ^3/uL Lymphocytes # (Auto) 1.3 0.4-5.4 10 ^3/uL Monocytes # (Auto) 0.8 0-1.3 10 ^3/uL Eosinophils # (Auto) 0.1 0-0.8 10 ^3/uL Basophils # (Auto) 0.1 0-0.2 10 ^3/uL Nucleated Red Blood Cells 0.0 % Sodium Level 142 136-145 mmol/L Potassium Level 3.6 3.5-5.1 mmol/L Chloride Level 107 98-107 mmol/L Carbon Dioxide Level 25 20-31 mmol/L Anion Gap 10 5-15 Blood Urea Nitrogen 14 9-23 mg/dL Creatinine 0.93 0.700-1.30 mg/dL Glomerular Filtration Rate Calc 106 >90 mL/min BUN/Creatinine Ratio 15.1 10.0-20.0 Serum Glucose 93 74-106 mg/dL Calcium Level 9.4 8.7-10.4 mg/dL Total Bilirubin 0.3 0.2-1.0 mg/dL Aspartate Amino Transferase (AST) 28 13-40 U/L Alanine Aminotransferase (ALT) 31 7-40 U/L Alkaline Phosphatase 73 46-116 U/L Total Protein 7.0 5.7-8.2 g/dL Albumin 4.5 3.2-4.8 g/dL Salicylates Level < 3.0 -30 mg/dL Acetaminophen Level < 2.0 L 10.0-20.0 UG/ML Plasma/Serum Blood Alcohol < 3.0 <10 mg/dL Urine Color Light-yellow Yellow Urine Clarity Clear Clear Urine pH 5.0 5.0-9.0 Urine Specific Poth 1.012 1.001-1.035 Urine Protein Negative Negative Urine Ketones Negative Negative Urine Blood Negative Negative /uL Urine Nitrite Negative Negative Urine Bilirubin Negative Negative Urine Urobilinogen Normal Negative mg/dL Urine Leukocyte Esterase Negative Negative /uL Urine RBC 1 0 - 3 /hpf Urine Microscopic WBC 2 0-3 /HPF Urine Squamous Epithelial Cells None seen <5 /hpf Urine Bacteria None seen None Seen /hpf Urine Mucus Few None Seen Urine Glucose Normal Normal mg/dL Urine Opiates Screen Neg NEGATIVE Urine Fentanyl Screen Neg NEGATIVE Urine Barbiturates Screen Neg NEGATIVE Urine Phencyclidine Screen Neg NEGATIVE Urine Amphetamines Screen Neg NEGATIVE Urine Benzodiazepines Screen Neg NEGATIVE Urine Cocaine Screen Neg NEGATIVE Urine Cannabinoids Screen Neg NEGATIVE Current Medications Medications (Trade) Dose Ordered Sig/Adry Route Start Time Stop Time Status Last Admin Lorazepam (Ativan Tablet) 1 mg ONCE ONCE PO 11/27/24 03:30 11/27/24 03:31 DC 11/27/24 03:39 Time of 1ST Reevaluation: 03:47 Reevaluation 1ST: Improved Patient Education/Counseling: Diagnosis, Treatment Family Education/Counseling: No Family Present Assigned to Dr. Dr. Dannielle jama ER physician. Patient is awaiting psychiatric placement and executive secretary social welfare consultation in the morning. Patient has been cooperative and stable here in the ED. Comments Patient presented with the above HPI.--psychiatric----workup was initiated. patient was found with the above mentioned diagnosis. the following medications were ordered: please refer to order lists of meds and tests obtained by myself Dr. Jonh. Patient ED course and VS have been stabilized. Patient has been reassessed in the ED and remained in a stable condition. Pertinent incidental findings were discussed with the patient and/or family. Patient/family voices understanding and is agreeable with plan. Patient has been observed in the ED adequate length of time to insure improvement/stability. Escalation of care considered: Consideration of escalation to observation or admission Psychiatry was consulted who recommended voluntary hold and transferred to a psychiatric facility. Please see the psychiatrist notes communicated directly to charge nurse any. All the reports of any imaging studies that were ordered by myself were reviewed by myself. Departure 1 Departure Time of Disposition: 22:52 Impression: Primary Impression: Suicide ideation Additional Impressions: Depression History of schizophrenia Disposition: 30 STILL A PATIENT Condition: Guarded Discharged With: Self Critical Care Note Critical Care Time?: No I personally scribed for WALTER JOHN DO ([email or web address]) on 11/26/24 at 20:48. Electronically submitted by Ambar Valenzuela ([email or web address]). I personally scribed for WALTER JOHN DO ([email or web address]) on 11/26/24 at 21:22. Electronically submitted by Ambar Valenzuela ([email or web address]). WALTER JOHN DO Nov 26, 2024 20:48
[2024-11-26 21:00] LABS: Urine Bacteria None Seen /hpf (None Seen)
[2024-11-26 21:20] LABS: Urine Blood Negative /uL (Negative); Urine Clarity Clear (Clear); Urine Color Light-Yellow (Yellow); Urine Mucus FEW (None Seen); Urine Protein, UAD Negative (Negative); Urine Specific Gravity 1.012 (1.001-1.035); Urine Squamous Epithelial Cell None Seen /hpf (<5); Urine Urobilinogen Normal (Negative); Urine WBC 2 /HPF (0-3)
[2024-11-26 21:29] LABS: Amphetamine Screen, Urine Neg (NEGATIVE)
[2024-11-26 21:35] LABS: Basophils # (auto) 0.1 10 ^3/uL (0-0.2); Basophils % (auto) 0.9 % (0.0-2.0); Eosinophils # (auto) 0.1 10 ^3/uL (0-0.8); Eosinophils % (auto) 1.6 % (0.0-7.0); Hematocrit 39.7 % (41.0-53.0); Hemoglobin 13.5 g/dL (13.5-17.5); Lymphocytes # (auto) 1.3 10 ^3/uL (0.4-5.4); Lymphocytes % (auto) 15.1 % (10.0-50.0); Mean Corpuscular Hemoglobin 32.6 pg (28.0-32.0); Mean Corpuscular Volume 95.8 fL (80.0-100.0); Monocytes # (auto) 0.8 10 ^3/uL (0-1.3); Monocytes % (auto) 9.1 % (0.0-12.0); Neutrophils # (auto) 6.4 10 ^3/uL (1.6-8.6); Neutrophils % (auto) 73.3 % (37.0-80.0); Platelet Count (auto) 216 10^3/uL (140-450); Red Blood Cells 4.15 10^6/uL (4.5-5.90); Red Cell Distribution Width 12.5 % (11.8-14.3); White Blood Cell 8.7 10^3/uL (4.4-10.8)
[2024-11-26 21:40] LABS: Barbiturate Scree,Urine Neg (NEGATIVE); Benzodiazephine Screen, Urine Neg (NEGATIVE); Cannabinoid Screen, Urine Neg (NEGATIVE); Cocaine Screen, Urine Neg (NEGATIVE); Opiate Scree,Urine Neg (NEGATIVE); Phencyclidine Screen, Urine Neg (NEGATIVE)
[2024-11-26 21:48] LABS: Alanine Aminotransferase 31 U/L (7-40); Alkaline Phosphatase 73 U/L (46-116); Anion Gap 10 (5-15); BUN/Creatinine Ratio 15.1 (10.0-20.0); Blood Urea Nitrogen 14 mg/dL (9-23); Calcium 9.4 mg/dL (8.7-10.4); Carbon Dioxide 25 mmol/L (20-31); Glucose 93 mg/dL (74-106); Potassium 3.6 mmol/L (3.5-5.1); Sodium 142 mmol/L (136-145)
[2024-11-26 21:49] LABS: Albumin 4.5 g/dL (3.2-4.8); Aspartate Aminotransferase 28 U/L (13-40); Bilirubin, Total 0.3 mg/dL (0.2-1.0)
[2024-11-26 21:52] LABS: Blood Alcohol < 3.0 mg/dL (<10); Chloride 107 mmol/L (98-107)
[2024-11-26 21:54] LABS: Acetaminophen < 2.0 UG/ML (10.0-20.0); Salicylate < 3.0 mg/dL (-30)
--- NOTE | 2024-11-27 03:19 | DVHINCON2 ---
Date of Service if different f: Nov 27, 2024 Time of Service: 03:02 Consult Consult Note PSYCHIATRY ED NEW CONSULT: HPI: 39 yo M pt with PPH of schizoaffective disorder and ETOH/THC use disorder presents to ED BIBA for safety, psychiatric stabilization and possible med initiation/optimization in setting of med noncompliance, depression, anxiety, and passive SI. Psychiatry consulted for safety evaluation and recommendations in context of current presentation Per pt, over past several days/weeks experiencing worsening depressed mood, hopelessness, helplessness, negative thoughts, isolation, loss of interest, decreased energy, poor sleep/appetite, anhedonia, amotivation and anxiety sy mptoms to include excessive worry, rumination, restlessness, racing/intrusive thoughts, feeling tensed/nervous, and irritability although some symptoms appears chronic in nature. Also intermittent SI that are fleeting but worsening with plan to cut wrist with razor blade. Reports primary stress as recent loss of ex-GF from drug OD and limited support system. No overt manic, psychotic, cognitive, dissociative phenomena, panic, or somatic symptoms noted. Pt currently does not have psychiatrist/therapist out in community although has sought outpt MH services in past. Currently rx'd Fluoxetine, Olanzapine, and Xanax but non-compliant for past several months. Continues to self medicating mood symptoms with ETOH and THC daily, denies IDU although does have long hx of THC/ETOH/meth dependency, previously in various drug tx programs with multiple relapses. Never , no children, unemployed/SSI, residing with ex-gf, currently on probation, no/limited support system noted. Unknown trauma hx. Unknown FH No acute medical issues, hx of seizures/TBI, or recent head injuries, NKDA Does have hx of SIB via cutting wrist, several prior psych hospitalizations for depression/SI. Denies history of violence, unprovoked aggression, or assaultive behaviors. Does not have access to firearms. Currently endorses passive SI. Denies HI/AVH. MSE: General Appearance/Behavior: Alert and awake; appears stated age, well developed, marginal/fair grooming and hygiene; calm and cooperative, fair eye contact, no PMA/PMR Speech: coherent, rrr Thought Process: linear, logical, appears goal-directed Thought Content: Abnormal Thoughts and Perceptions: None Homicidality / Violent Thoughts: None Suicidality: passive SI Hallucinations: denies AVH Delusions: denies paranoia, persecutory, or grandiose delusions Obsessions /compulsions : None Judgment and Insight: fair/questionable judgment with fair insight Mood & Affect: "depressed" with mood-congruent, constricted/restricted, appropriate Orientation: oriented to person, place, time Attention/Concentration: appears intact Memory: grossly intact Language: no unusual or inappropriate language Assessment: 39 yo M pt with PPH of schizoaffective disorder and ETOH/THC use disorder presents to ED BIBA for safety, psychiatric stabilization and possible med initiation/optimization in setting of med noncompliance, depression, anxiety, and passive SI Pt is currently expressing some SI with moderate interference in daily functioning in setting of recent loss of GF from drug OD. Limited protective factors presently. Not on any psychotropics which maybe contributing to current symptoms. No outpt MH services at present. Pt agrees to talk with staff instead of acting on any suicidal feelings while in ED. Pt medically cleared. Thus, acute risk is moderate and hence is appropriate for inpatient psychiatry admission. Pt will benefit from inpatient psychiatric admission for safety, psychiatric stabilization and possible medication initiation/optimization. Pt willing to transfer to inpt psych hospitalization voluntarily. Consider 5150 hold for DTS ONLY if needed for transfer or if no voluntary beds are available Primary Diagnosis: Adjustment disorder with depressed mood and anxiety. Depressive disorder unspecified. ETOH/THC use disorder, unspecified. Schizoaffective disorder, hx Recommend vol transfer to inpt psych facility for higher level of care per pts request 1:1 sitter is recommended Recommend restarting of outpt med regimen - Fluoxetine 20 mg qd, Olanzapine 5 mg bid Consider one time dose of Ativan 1 mg po now per pts request Risks/benefits/alternative treatments discussed, informed consent provided by pt If patient later refuses voluntary hospitalization/ requests to be discharged from ED prior to transfer, please reconsult telepsych services to evaluate for 5150 hold Pt verbalized understanding and is receptive to above tx plan This case was discussed with ED nurse/provider and all parties in agreement with above tx plan Toro Wadsworth MD Plan discussed with: Patient TORO WADSWORTH MD Nov 27, 2024 03:19
[2024-11-27 03:30] VITALS: PULSE 84; RESP 14; O2SAT 98
[2024-11-27] MEDS: LORazepam 0.5 MG TAB PO ONE (03:39)
[2024-11-27] MEDS: FLUoxetine HCL 20 MG CAP PO SCH (06:46)
[2024-11-27 07:30] VITALS: PULSE 78; RESP 16; O2SAT 98
[2024-11-27] MEDS: OLANZapine 5 MG TAB PO SCH (10:43)
[2024-11-27] MEDS: NICOTINE 7MG/24HR TOPICAL PATCH TD ONE (15:17)
[2024-11-27 17:11] VITALS: BP 119/85; PULSE 82; RESP 16; TEMP 97.6; O2SAT 98
== END 2024-11-27 18:05 | disposition short-term general hospital (02) ==
LOC: ER 20:25 → EDBD 20:25 → ER 11-27 18:05
DX: S60.812A Abrasion of left wrist, initial encounter (principal); F20.9 Schizophrenia, unspecified; F32.9 Major depressive disorder, single episode, unspecified; R45.851 Suicidal ideations; F41.9 Anxiety disorder, unspecified; F17.210 Nicotine dependence, cigarettes, uncomplicated; F12.90 Cannabis use, unspecified, uncomplicated; Z79.899 Other long term (current) drug therapy; X58.XXXA Exposure to other specified factors, initial encounter; Y93.89 Activity, other specified; Y92.89 Other specified places as the place of occurrence of the external cause; Y99.8 Other external cause status
CPT/HCPCS: 36415; 80053; 80307; 80320; 80329; 81001; 85025; 99285; J7030

== ENCOUNTER 2025-03-31 20:13 | Emergency (ER) | payer MEDICAID ==
[~2025-03-31] VITALS: Ht 182.9 cm; Wt 86.5 kg
--- NOTE | 2025-03-31 20:32 | ED.PDOC ---
GI ASSESSMENT HPI Comments 39-year-old male with PMHx Schizophrenia presents with a chief complaint of abdominal pain x onset 2 years ago. Patient states that he is recently homeless and has been having abdominal pain for the past 2 years. Patient states that his pain is localized to his LLQ, nonradiating, describes as aching, and rates his pain a 6/10. Patient has been seen here previously for multiple SI complaints and voluntary psychiatric holds. Chief Complaint: Abdominal Pain Time Seen by MD: 20:22 Primary Care Provider: Chris Reviewed Notes: Nurses Notes, Medications, Allergies Allergies: Coded Allergies: NO KNOWN ALLERGIES (Unverified , 03/02/21) Home Meds Active Scripts Magnesium Oxide (MAGNESIUM OXIDE) 400 Mg Tab, 1 TAB PO DAILY for 10 Days, #10 TAB 5 Refills Prov:MG WHITMAN MD 05/04/23 Sennosides-Docusate Sodium (Senokot S) 1 Tab Tab, 1 TAB PO BID for 10 Days, #20 TAB Prov:MG WHITMAN MD 05/04/23 Ciprofloxacin Hcl (Cipro) 500 Mg Tab, 1 TAB PO BID for 7 Days, #14 TAB Prov:MG WHITMAN MD 05/04/23 Dicyclomine Hcl (BENTYL CAPSULE) 10 Mg Cp, 1 CAP PO Q6HPRN, #30 CAP 3 Refills Prov:JD PHILLIPS DO 04/16/23 Polyethylene Glycol 3350 (Miralax) 17 Gm Pow, 17 GM PO DAILY PRN, #10 PKT 0 Refills Prov:FANNY BUCK ETCHER APPRENTICE PHOTOENGRAVING 03/25/23 Reported Medications Alprazolam (Xanax) Unknown Strength Tb, PO UNKNOWN FREQUENCY 06/06/21 Hydroxyzine HCl (Hydroxyzine Hydrochloride) 50 Mg Tab, 1 TAB PO TIDP 06/06/21 Fluoxetine HCl (Fluoxetine Hydrochloride) 20 Mg Cap, 1 CAP PO DAILY 06/06/21 Olanzapine (OLANZAPINE) 10 Mg Tab, 1 TAB PO HS 06/06/21 Information Source: Patient Mode of Arrival: Ambulatory Timing: Months Duration: Intermittent Prehospital treatment: None Quality: Aching Vomitus: None Stool: Normal Severity: Moderate Recent: Ingestion of ETOH Recent Hx of: None Pain Location: LLQ Associated sign and symptoms: Abdominal Pain Past Medical History PAST MEDICAL HISTORY: Anxiety, Depression, Schizophrenia Surgical History: Denies all surgeries Family History Family History: Reviewed,noncontributory to illness Social History Smoker: Cigarettes, Less Than 1 Pack/Day Alcohol: Occasionally Drugs: Marijuana Lives In: Home Constitutional: denies: chills, diaphoresis, fatigue, fever, malaise, sweats, weakness, others EENTM: denies: blurred vision, double vision, ear bleeding, ear discharge, ear drainage, ear pain, ear ringing, eye pain, eye redness, hearing loss, mouth pain, mouth swelling, nasal discharge, nose bleeding, nose congestion, nose pain, photophobia, tearing, throat pain, throat swelling, voice changes, others Respiratory: denies: cough, hemoptysis, orthopnea, SOB at rest, shortness of breath, SOB with excertion, stridor, wheezing, others Cardiovascular: denies: chest pain, dizzy spells, diaphoresis, Dyspnea on exertion, edema, irregular heart beat, left arm pain, lightheadedness, palpitations, PND, syncope, others Gastrointestinal: reports: abdominal pain; denies: abdomen distended, blood streaked bowels, constipated, diarrhea, dysphagia, difficulty swallowing, hematemesis, melena, nausea, poor appetite, poor fluid intake, rectal bleeding, rectal pain, vomiting, others Genitourinary: denies: burning, dysuria, flank pain, frequency, hematuria, incontinence, penile discharge, penile sore, pain, testicle pain, testicle swelling, urgency, others Neurological: denies: dizziness, fainting, headache, left sided numbness, left sided weakness, numbness, paresthesia, pre-existing deficit, right sided numbness, right sided weakness, seizure, speech problems, tingling, tremors, weakness, others Musculoskeletal: denies: back pain, gout, joint pain, joint swelling, muscle pain, muscle stiffness, neck pain, others Integumetry: denies: bruises, change in color, change in hair/nails, dryness, laceration, lesions, lumps, rash, wounds, others Allergic/Immunocompromised: denies: Difficulty Healing, Frequent Infections, Hives, Itching, others Hematologic/Lymphatic: denies: anemia, blood clots, easy bleeding, easy bruising, swollen glands, others Endocrine: denies: excessive hunger, excessive sweating, excessive thirst, excessive urination, flushing, intolerance to cold, intolerance to heat, unexplained weight gain, unexplained weight loss, others Psychiatric: denies: anxiety, bipolar disorder, depression, hopeless, panic disorder, schizophrenia, sleepless, suicidal, others All Other Systems: Reviewed and Negative Physical Exam General Appearance: No Apparent Distress, Normal HEENT: Normal ENT Inspection, Pharynx Normal, TMs Normal Neck: Full Range of Motion, Non-Tender, Normal, Normal Inspection Respiratory: Chest Non-Tender, Lungs Clear, No Accessory Muscle Use, No Respiratory Distress, Normal Breath Sounds Cardiovascular: No Edema, No JVD, No Murmur, No Gallop, Normal Peripheral Pulses, Regular Rate/Rhythm Breast Exam: Deferred Gastrointestinal: No Organomegaly, No Pulsatile Mass, Normal Bowel Sounds, Soft, Tenderness (LLQ TENDERNESS) Genitalia: Deferred Pelvic: Deferred Rectal: Deferred Extremities: No calf tenderness, Normal capillary refill, Normal inspection, Normal range of motion, Non-tender, No pedal edema Musculoskeletal : Apperance: Normal Neurologic: Alert, floor polisher II-XII nml as Tested, No Motor Deficits, Normal Affect, Normal Mood, No Sensory Deficits Cerebellar Function: Normal Reflexes: Normal Skin: Dry, Normal Color, Warm Lymphatic: No Adenopathy Was a procedure done? Was a procedure done?: No GI differential Dx Differential Diagnosis: Cholecystitis, Constipation, Gastritis/PUD, Gastroenteritis, GI hemorrhage X-Ray, Labs, Meds, VS Vital Signs Date Time Temp Pulse Resp B/P (MAP) Pulse Ox O2 Delivery O2 Flow Rate FiO2 03/31/25 20:17 98.1 99 14 118/73 (88) 96 98.1 Lab Test 03/31/25 20:30 03/31/25 20:26 Range/Units White Blood Count 10.3 4.4-10.8 10^3/uL Red Blood Count 4.18 L 4.5-5.90 10^6/uL Hemoglobin 12.4 L 13.5-17.5 g/dL Hematocrit 37.2 L 41.0-53.0 % Mean Corpuscular Volume 88.9 80.0-100.0 fL Mean Corpuscular Hemoglobin 29.6 28.0-32.0 pg Mean Corpuscular Hemoglobin Concent 33.3 32.0-36.0 g/dL Red Cell Distribution Width 15.5 H 11.8-14.3 % Platelet Count 225 140-450 10^3/uL Mean Platelet Volume 10.0 6.9-10.8 fL Neutrophils (%) (Auto) 75.6 37.0-80.0 % Lymphocytes (%) (Auto) 12.9 10.0-50.0 % Monocytes (%) (Auto) 9.2 0.0-12.0 % Eosinophils (%) (Auto) 1.6 0.0-7.0 % Basophils (%) (Auto) 0.7 0.0-2.0 % Neutrophils # (Auto) 7.8 1.6-8.6 10 ^3/uL Lymphocytes # (Auto) 1.3 0.4-5.4 10 ^3/uL Monocytes # (Auto) 1.0 0-1.3 10 ^3/uL Eosinophils # (Auto) 0.2 0-0.8 10 ^3/uL Basophils # (Auto) 0.1 0-0.2 10 ^3/uL Nucleated Red Blood Cells 0.0 % Sodium Level 141 136-145 mmol/L Potassium Level 4.2 3.5-5.1 mmol/L Chloride Level 104 98-107 mmol/L Carbon Dioxide Level 26 20-31 mmol/L Anion Gap 11 5-15 Blood Urea Nitrogen 14 9-23 mg/dL Creatinine 0.97 0.700-1.30 mg/dL Glomerular Filtration Rate Calc 101 >90 mL/min BUN/Creatinine Ratio 14.4 10.0-20.0 Serum Glucose 104 74-106 mg/dL Calcium Level 9.6 8.7-10.4 mg/dL Lipase 30 12-53 U/L Urine Color Colorless Yellow Urine Clarity Clear Clear Urine pH 5.5 5.0-9.0 Urine Specific [place] 1.004 1.001-1.035 Urine Protein Negative Negative Urine Ketones Negative Negative Urine Blood Negative Negative /uL Urine Nitrite Negative Negative Urine Bilirubin Negative Negative Urine Urobilinogen Normal Negative mg/dL Urine Leukocyte Esterase Negative Negative /uL Urine RBC <1 0 - 3 /hpf Urine Microscopic WBC < 1 0-3 /HPF Urine Squamous Epithelial Cells None seen <5 /hpf Urine Bacteria None seen None Seen /hpf Urine Glucose Normal Normal mg/dL X-Ray, Labs, Meds, VS Comment IMAGING: X-RAYS AND CT SCANS WERE REVIEWED AND INTERPRETED BY THIS PROVIDER, IMAGING SHOWS NO FRACTURES AND NO PATHOLOGICAL DISEASE. PENDING RADIOLOGY REVIEW. LABORATORY: LABS REVIEWED AND INTERPRETED BY THIS PROVIDER. NO SIGNIFICANT ABNORMALITIES NOTED. PATIENT HAS PRIOR MEDICAL VISITS REVIEWED. MED RECONCILIATION PERFORMED VITAL SIGNS REVIEWED Time of 1ST Reevaluation: 20:52 Reevaluation 1ST: Unchanged Patient Education/Counseling: Diagnosis, Treatment, Need For Follow Up (Follow up with PCP in the next 2-4 days. Return to the emergency department have not improve over the next 48 hours) Family Education/Counseling: No Family Present Departure 1 Departure Time of Disposition: 01:02 Impression: Primary Impression: Gastritis Qualified Codes: K29.20 - Alcoholic gastritis without bleeding Additional Impression: Non-specific colitis Disposition: 01 HOME / SELF CARE / HOMELESS Condition: Fair e-Prescriptions Dicyclomine Hcl (Dicyclomine Hcl) 20 Mg Tab 1 TAB PO TID PRN, #30 TAB 1 Refill Prov: JOSE FRANCISCO ALONZO 04/01/25 Discharged With: Self Critical Care Note Critical Care Time?: No Stability Stability form required: No Heart Score Heart Score: Heart Score Response (Comments) Value History N/A 0 EKG N/A 0 Age N/A 0 Risk Factors N/A 0 Troponin N/A 0 Total 0 I personally scribed for JOSE FRANCISCO ALONZO ([email or web address]) on 03/31/25 at 20:32. Electronically submitted by Shaji Bridges ([email or web address]). JOSE FRANCISCO ALONZO Mar 31, 2025 20:32
[2025-03-31 21:01] LABS: Chloride 104 mmol/L (98-107); Potassium 4.2 mmol/L (3.5-5.1); Sodium 141 mmol/L (136-145)
[2025-03-31 21:02] LABS: Anion Gap 11 (5-15); Basophils # (auto) 0.1 10 ^3/uL (0-0.2); Basophils % (auto) 0.7 % (0.0-2.0); Carbon Dioxide 26 mmol/L (20-31); Eosinophils # (auto) 0.2 10 ^3/uL (0-0.8); Eosinophils % (auto) 1.6 % (0.0-7.0); Hematocrit 37.2 % (41.0-53.0); Hemoglobin 12.4 g/dL (13.5-17.5); Lymphocytes # (auto) 1.3 10 ^3/uL (0.4-5.4); Lymphocytes % (auto) 12.9 % (10.0-50.0); Mean Corpuscular Hemoglobin 29.6 pg (28.0-32.0); Mean Corpuscular Hgb Conc. 33.3 g/dL (32.0-36.0); Mean Corpuscular Volume 88.9 fL (80.0-100.0); Monocytes % (auto) 9.2 % (0.0-12.0); Neutrophils # (auto) 7.8 10 ^3/uL (1.6-8.6); Neutrophils % (auto) 75.6 % (37.0-80.0); Platelet Count (auto) 225 10^3/uL (140-450); Red Blood Cells 4.18 10^6/uL (4.5-5.90); Red Cell Distribution Width 15.5 % (11.8-14.3); White Blood Cell 10.3 10^3/uL (4.4-10.8)
[2025-03-31 21:03] LABS: Calcium 9.6 mg/dL (8.7-10.4)
[2025-03-31 21:07] LABS: BUN/Creatinine Ratio 14.4 (10.0-20.0); Blood Urea Nitrogen 14 mg/dL (9-23); Glucose 104 mg/dL (74-106)
[2025-03-31 21:21] LABS: Lipase 30 U/L (12-53)
[2025-03-31 22:44] LABS: Urine Bacteria None Seen /hpf (None Seen)
[2025-03-31 22:58] LABS: Urine Blood Negative /uL (Negative); Urine Clarity Clear (Clear); Urine Color Colorless (Yellow); Urine Protein, UAD Negative (Negative); Urine Specific Gravity 1.004 (1.001-1.035); Urine Squamous Epithelial Cell None Seen /hpf (<5); Urine Urobilinogen Normal (Negative); Urine WBC < 1 /HPF (0-3); Urine pH 5.5 (5.0-9.0)
--- NOTE | 2025-04-01 00:55 | DVH ---
CLINICAL HISTORY: abd pain TECHNIQUE: CT of the abdomen and pelvis was performed without intravenous contrast. This exam was per formed according to our departmental dose optimization program. Up-to-date CT equipment and radiation dose reduction techniques are utilized as appropriate. CTDI: 7.96+ 0.14 DLP: 451.31 WID: COMPARISON: CT CT AB PEL WO CON-NO ORAL OR IV on DOS: 05/04/23 FINDINGS: Lower Thorax: Unremarkable. Liver and Biliary system: There is a well-defined hypodensity in segment 6 of the liver likely a cyst although not optimally evaluated without contrast. Otherwise unremarkable. Spleen: Unremarkable. Adrenal Glands and Kidneys: Unremarkable. Pancreas and Retroperitoneum: Unremarkable. Aorta and Major Vessels: Unremarkable. Bowel, Mesentery and Peritoneal space: Normal caliber small and large bowel. Normal appendix. No free air or fluid collection. Pelvis: Unremarkable. Abdominal wall and Osseous Structures: No destructive osseous lesion. Minor lumbar spondylosis. IMPRESSION: No noncontrast evidence of acute abnormality.
[2025-04-01] MEDS ORDERED: DICY20TA PO (01:02)
[2025-04-01 02:18] VITALS: BP 129/81; PULSE 79; RESP 18; TEMP 98.3; O2SAT 99
== END 2025-04-01 02:22 | disposition home or self-care (01) ==
LOC: ER 20:14
DX: K29.20 Alcoholic gastritis without bleeding (principal); K52.9 Noninfective gastroenteritis and colitis, unspecified; F41.9 Anxiety disorder, unspecified; F32.A Depression, unspecified; F20.9 Schizophrenia, unspecified; F17.210 Nicotine dependence, cigarettes, uncomplicated; F10.90 Alcohol use, unspecified, uncomplicated; F12.90 Cannabis use, unspecified, uncomplicated; Z79.899 Other long term (current) drug therapy; Z59.00 Homelessness unspecified; Y90.9 Presence of alcohol in blood, level not specified
CPT/HCPCS: 36415; 74176; 80048; 81001; 83690; 85025